=== PATIENT | female | born 1940 | race African-American/Black ===

== ENCOUNTER 2020-03-13 00:11 | Emergency (ER) | payer OTHER ==
[~2020-03-13] VITALS: Ht 162.6 cm; Wt 65.8 kg
--- NOTE | 2020-03-13 00:17 | NUR ---
ED Nurse Note: Patient walked into the ED from home with c/o abdominal pain. Pain is accompanied by nausea/ vomiting with diarrhea onset 2 hours ago. Pain is aching 6/10 on LLQ of abdomen. Triage BP at 133/67. Patient denies injury, chest painm, SOB. No flu like s/sx noted. Placed on monitor bed
--- NOTE | 2020-03-13 00:20 | NUR ---
ED Nurse Note: ERMD at bedside
--- NOTE | 2020-03-13 00:23 | Emergency Room Report ---
History of Present Illness General Chief Complaint: Nausea, Vomiting, and Diarrhea Source: Patient Present Illness HPI Is a 79-year-old female with a history of hypertension. She presents with chief complaint of dizziness with nausea and vomiting. Onset was acute. Occurred about an hour ago. She was sitting and all of a sudden said room was spinning. She felt very nauseous. Had small episode of vomiting. She said is worse with her eyes open. Worse with turning her head. Similar symptom in the past but many years ago. No focal deficit. No fever chills but no chest pain. No diarrhea. Allergies: Coded Allergies: No Known Allergies (Verified Allergy, Unknown, N/A, 02/08/06) COVID-19 Screening Contact w/high risk pt: No Experienced COVID-19 symptoms?: Yes COVID-19 Testing performed [employer]: Yes - 1 month ago COVID-19 Screening: Negative COVID-19 COVID-19 Testing Source: [facility] Patient History Past Medical History: see triage record, old chart reviewed, HTN Past Surgical History: none Pertinent Family History: none Social History: Denies: smoking Now: No Immunizations: other Reviewed Nursing Documentation: PMH: Agreed; PSxH: Agreed Nursing Documentation-PMH Hx Hypertension: Yes Review of Systems Eye: Denies: eye pain, blurred vision ENT: Denies: ear pain, nose congestion, throat swelling Respiratory: Denies: cough, shortness of breath Cardiovascular: Denies: chest pain, palpitations Gastrointestinal: Denies: abdominal pain, diarrhea, nausea, vomiting Musculoskeletal: Denies: back pain, joint pain Skin: Denies: rash Neurological: Reports: dizziness; Denies: headache, numbness Endocrine: Denies: increased thirst, increased urine Hematologic/Lymphatic: Denies: easy bruising All Other Systems: negative except mentioned in HPI Physical Exam Vital Signs Date Time Temp Pulse Resp B/P (MAP) Pulse Ox O2 Delivery O2 Flow Rate FiO2 03/13/20 00:13 97.2 87 22 135/76 (95) 100 Room Air Vitals unremarkable Sp02 EP Interpretation: reviewed, normal General Appearance: well appearing, no apparent distress, alert Head: normocephalic, atraumatic Eyes: bilateral eye PERRL, bilateral eye EOMI ENT: hearing grossly normal, normal pharynx Neck: full range of motion, supple, no meningismus Respiratory: chest non-tender, lungs clear, normal breath sounds Cardiovascular #1: regular rate, rhythm, no murmur Gastrointestinal: normal bowel sounds, non tender, no mass, no organomegaly, no bruit, non-distended Musculoskeletal: back normal, normal range of motion, gait/station normal Psychiatric: mood/affect normal Medical Decision Making Diagnostic Impression: Primary Impression: Vertigo ER Course Patient presents with symptom consistent with vertigo. No evidence of TIA or CVA. No evidence of central vertigo. No neoplastic process. She felt better now. She is asymptomatic. Will discharge home. CT/MRI/US Diagnostic Results CT/MRI/US Diagnostic Results : Imaging Test Ordered: CT head Impression Negative per radiologist Last Vital Signs Date Time Temp Pulse Resp B/P (MAP) Pulse Ox O2 Delivery O2 Flow Rate FiO2 03/13/20 00:13 97.2 87 22 135/76 (95) 100 Room Air Status: improved Disposition: HOME, SELF-CARE Condition: Stable Scripts Meclizine Hcl* (MECLIZINE*) 25 Mg Tablet 25 MG ORAL THREE TIMES A DAY for dizziness, #30 TAB Prov: Sánchez Dietz MD 03/13/20 Additional Instructions: Follow up with your doctor in 7 days. Return if symptoms worsen. Sánchez Dietz MD Mar 13, 2020 00:23
[2020-03-13 00:31] VITALS: BP 135/76
--- NOTE | 2020-03-13 00:31 | NUR ---
ED Nurse Note: Blood sent to lab for workup
[2020-03-13 00:40] LABS: BASOPHILS % (AUTO) 1.3 % (0.0-2.0); EOSINOPHILS % (AUTO) 0.1 % (0.0-3.0); HEMATOCRIT 41.4 % (37.0-47.0); HEMOGLOBIN 14.1 G/DL (12.0-16.0); LYMPHOCYTES % (AUTO) 20.9 % (20.0-45.0); MEAN CORPUSCULAR VOLUME 88 FL (80-99); MONOCYTES % (AUTO) 6.1 % (1.0-10.0); NEUTROPHILS % (AUTO) 71.7 % (45.0-75.0); PLATELET COUNT 233 K/UL (150-450); RED BLOOD COUNT 4.73 M/UL (4.20-5.40); RED CELL DISTRIBUTION WIDTH 12.5 % (11.6-14.8); WHITE BLOOD COUNT 7.7 K/UL (4.8-10.8)
[2020-03-13 00:53] LABS: ANION GAP 12 mmol/L (5-15); BLOOD UREA NITROGEN 14 mg/dL (7-18); CALCIUM 9.8 MG/DL (8.5-10.1); CARBON DIOXIDE 28 MMOL/L (21-32); CHLORIDE 98 MMOL/L (98-107); CREATININE 1.3 MG/DL (0.55-1.30); POTASSIUM 4.9 MMOL/L (3.5-5.1); SODIUM 137 MMOL/L (136-145)
--- NOTE | 2020-03-13 01:34 | Diagnostic Imaging Report ---
EXAM: CT Head Without Intravenous Contrast CLINICAL HISTORY: DIZZY TECHNIQUE: Axial computed tomography images of the head/brain without intravenous contrast. CTDI is 53.40 mGy and DLP is 1125.70 mGy-cm. One or more of the following dose reduction techniques were used: automated exposure control, adjustment of the mA and/or kV according to patient size, use of iterative reconstruction technique. COMPARISON: MRI dated 05/26/2007. FINDINGS: Brain: Mild generalized brain atrophy. 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 Symmetrical calcifications within the basal ganglia, likely dystrophic. No hemorrhage. Ventricles: Unremarkable. No ventriculomegaly. Bones/joints: Unremarkable. No acute fracture. Soft tissues: Unremarkable. Sinuses: Unremarkable as visualized. No acute sinusitis. Mastoid air cells: Unremarkable as visualized. No mastoid effusion. IMPRESSION: Chronic changes as described. No acute intracranial hemorrhage or space-occupying lesion.
[2020-03-13] MEDS ORDERED: MECLIZINE HCL25 MG ORAL (02:13)
--- NOTE | 2020-03-13 02:30 | NUR ---
ER DISCHARGE NOTE: Patient is cleared to be discharged per ERMD, pt is aox4, on room air, with stable vital signs. pt was given dc and prescription instructions, pt was able to verbalize understanding, pt id band and iv site removed without complications. pt is able to ambulate with steady gait. pt took all belongings.
[2020-03-13 02:31] VITALS: BP 128/85
== END 2020-03-13 02:32 | disposition home or self-care (01) ==
LOC: EMR 00:40
DX: R42 Dizziness and giddiness (principal); R11.2 Nausea with vomiting, unspecified; I10 Essential (primary) hypertension
CPT/HCPCS: 36415; 70450; 80048; 84484; 85025; 96361; 96374; 99284; J2405; J7030